=== PATIENT | female | born 1995 | race African-American/Black ===

== ENCOUNTER 2016-12-05 17:25 | Emergency (ER) | payer MEDICAID ==
[~2016-12-05] VITALS: Ht 170.2 cm; Wt 60.0 kg
[2016-12-05] MEDS ORDERED: ACETAMINOPHEN 500MG TABLET PO ONE (19:30)
[2016-12-05 19:44] LABS: CLARITY URINE CLEAR (CLEAR); COLOR URINE YELLOW (YELLOW); GLUCOSE URINE NEGATIVE (NEGATIVE); KETONES URINE NEGATIVE (NEGATIVE); LEUKOCYTE ESTERASE URINE NEGATIVE (NEGATIVE); NITRITE URINE NEGATIVE (NEGATIVE); OCCULT BLOOD URINE NEGATIVE (NEGATIVE); PROTEIN URINE NEGATIVE (NEGATIVE); SPECIFIC GRAVITY URINE 1.022 (1.005-1.030); UROBILINOGEN URINE 0.2 E.U./dL (0.2-1.0)
[2016-12-05 19:44] LABS: CHLORIDE 109 mEq/L (98-107)
[2016-12-05 19:45] LABS: BASOPHILS % 0.5 % (0.0-2.0); EOSINOPHILS % 0.8 % (0.0-5.0); HEMATOCRIT. 35.6 % (36.0-48.0); HEMOGLOBIN. 12.1 g/dL (12.0-16.0); LYMPHOCYTES % 14.5 % (20.0-50.0); MEAN CORPUSCULAR HEMOGLOBIN 30.7 pg (28.0-32.0); MEAN CORPUSCULAR VOLUME 90.2 fL (81.0-99.0); MEAN PLATELET VOLUME 11.5 fl (7.4-10.4); MONOCYTES % 6.2 % (2.0-8.0); PLATELET 131 x1000/uL (130-400); RED BLOOD CELL COUNT 3.95 mill/uL (4.2-5.4); RED CELL DISTRIBUTION WIDTH 13.4 % (11.6-14.6)
[2016-12-05 19:57] LABS: CARBON DIOXIDE 26 mEq/L (21-32)
[2016-12-05 20:09] LABS: B-HCG QUANTITATIVE 12682 mIU/mL (<3)
[2016-12-05 21:40] VITALS: BP 82/42
== END 2016-12-05 23:05 | disposition home or self-care (01) ==
LOC: ER 20:45
DX: O20.0 Threatened abortion (principal); O26.891 Other specified pregnancy related conditions, first trimester; M54.5 Low back pain; O99.411 Diseases of the circulatory system complicating pregnancy, first trimester; I25.10 Atherosclerotic heart disease of native coronary artery without angina pectoris; Z3A.01 Less than 8 weeks gestation of pregnancy
CPT/HCPCS: 36415; 76801; 76817; 80053; 81003; 81025; 84702; 85025; 99285; Z7610

== ENCOUNTER 2017-01-15 17:39 | Emergency (ER) | payer MEDICAID ==
[~2017-01-15] VITALS: Ht 170.2 cm; Wt 61.0 kg
[2017-01-15] MEDS ORDERED: SODIUM CHLORIDE 0.9% 1,000 ML IV ONE (22:11)
[2017-01-15 23:18] LABS: BASOPHILS % 0.7 % (0.0-2.0); EOSINOPHILS % 2.6 % (0.0-5.0); HEMATOCRIT. 40.2 % (36.0-48.0); HEMOGLOBIN. 13.8 g/dL (12.0-16.0); LYMPHOCYTES % 22.7 % (20.0-50.0); MEAN CORPUSCULAR HEMOGLOBIN 31.3 pg (28.0-32.0); MEAN CORPUSCULAR VOLUME 91.1 fL (81.0-99.0); MEAN PLATELET VOLUME 11.8 fl (7.4-10.4); MONOCYTES % 7.5 % (2.0-8.0); NEUTROPHILS % 66.5 % (40.0-76.0); PLATELET 141 x1000/uL (130-400); RED BLOOD CELL COUNT 4.41 mill/uL (4.2-5.4); RED CELL DISTRIBUTION WIDTH 13.9 % (11.6-14.6)
[2017-01-15 23:24] LABS: CHLORIDE 103 mEq/L (98-107)
[2017-01-15 23:40] LABS: CARBON DIOXIDE 28 mEq/L (21-32)
[2017-01-15 23:48] LABS: B-HCG QUANTITATIVE 8036 mIU/mL (<3)
[2017-01-16 00:32] LABS: CLARITY URINE CLOUDY (CLEAR); COLOR URINE DARK YELLOW (YELLOW); GLUCOSE URINE NEGATIVE (NEGATIVE); KETONES URINE 1+ (NEGATIVE); LEUKOCYTE ESTERASE URINE NEGATIVE (NEGATIVE); NITRITE URINE NEGATIVE (NEGATIVE); OCCULT BLOOD URINE 1+ (NEGATIVE); PROTEIN URINE NEGATIVE (NEGATIVE); SPECIFIC GRAVITY URINE 1.032 (1.005-1.030)
[2017-01-16 01:30] VITALS: BP 104/54
== END 2017-01-16 02:44 | disposition home or self-care (01) ==
LOC: ER 17:39
DX: O03.9 Complete or unspecified spontaneous abortion without complication (principal); O23.40 Unspecified infection of urinary tract in pregnancy, unspecified trimester; Z3A.11 11 weeks gestation of pregnancy
CPT/HCPCS: 36415; 76801; 76817; 80048; 81001; 81025; 84702; 85025; 86850; 86900; 86901; 96360; 99285; Z7610; J7030

== ENCOUNTER 2018-07-28 14:53 | Emergency (ER) | payer MEDICAID ==
[~2018-07-28] VITALS: Ht 170.2 cm; Wt 64.0 kg
[2018-07-28 15:00] VITALS: BP 96/48
== END 2018-07-28 22:31 | disposition left against medical advice (07) ==
LOC: ER 17:20
DX: R07.9 Chest pain, unspecified (principal); Z53.21 Procedure and treatment not carried out due to patient leaving prior to being seen by health care provider
CPT/HCPCS: 93005